=== PATIENT | male | born 1980 | race Hispanic/Latino ===

== ENCOUNTER 2018-08-30 02:23 | Emergency (ER) | payer OTHER ==
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
[2018-08-30 06:47] VITALS: BP 160/109
[2018-08-30] MEDS ORDERED: ULTRAM PO ONE (06:48)
[2018-08-30] MEDS ORDERED: IBUPROFEN PO ONE (06:48)
== END 2018-08-30 06:59 | disposition home or self-care (01) ==
LOC: ED 02:23
DX: S60.465A Insect bite (nonvenomous) of left ring finger, initial encounter (principal); S50.862A Insect bite (nonvenomous) of left forearm, initial encounter; I10 Essential (primary) hypertension; Z91.040 Latex allergy status; Z88.2 Allergy status to sulfonamides; W57.XXXA Bitten or stung by nonvenomous insect and other nonvenomous arthropods, initial encounter; Y93.89 Activity, other specified; Y92.89 Other specified places as the place of occurrence of the external cause; Y99.8 Other external cause status